=== PATIENT | female | born 1940 | race Caucasian/White ===

== ENCOUNTER 2017-01-20 00:41 | Emergency (ER) | payer MEDICARE, OTHER ==
[2017-01-20] MEDS ORDERED: HYDROCHLOROTHIAZIDE 12.5 MG CAPSULE PO ONE (01:56)
[2017-01-20] MEDS ORDERED: LORAZEPAM INJ 2 MG/1 ML VIAL IV ONE (01:58)
--- NOTE | 2017-01-20 02:02 | ER Document Report ---
ED General - General Chief Complaint: Blood Pressure Problem Stated Complaint: HEADACHE AND BLOOD PRESSURE PROBLEMS Time Seen by Provider: 01/20/17 01:01 Notes: Patient is a 76-year-old female presents with complaints of high blood pressure. She says 3 weeks ago her neurologist took her off her chlorthalidone. Her blood pressure started to go up. She went to her primary care doctor who started on clonidine. Clonidine made her very sleepy and therefore she was weaned off the clonidine. She saw her primary care doctor today who started her back chlorthalidone and also prescribed a new medication that she is to chicken picker tomorrow. She says when she laid down she felt like her heart was beating hard. She did not have chest pain associated with this. She does have mild headache. She has no weakness or numbness. No slurring of her speech. She said she felt very anxious. She called her doctor told her to come to the ER. Patient's concerned that her blood pressure continues to run high. She has no other complaints at this time. Patient does have a mild right -sided headache she says it is intermittent. It is gradual in onset. It is not sudden onset. TRAVEL OUTSIDE OF THE [place] IN LAST 30 DAYS: No - Related Data Allergies/Adverse Reactions: clarithromycin [Clarithromycin] Allergy (Verified 07/24/16 14:40) codeine [Codeine] Allergy (Verified 07/24/16 14:40) diltiazem HCl [From Tiazac] Allergy (Verified 07/24/16 14:40) oxycodone [Oxycodone] Allergy (Verified 07/24/16 14:40) Past Medical History - Social History Smoking Status: Never Smoker Frequency of alcohol use: None Drug Abuse: None Family History: Reviewed & Not Pertinent Patient has suicidal ideation: No Patient has homicidal ideation: No - Past Medical History Cardiac Medical History: Reports: Hx Hypertension Denies: Hx Coronary Artery Disease, Hx Heart Attack Pulmonary Medical History: Denies: Hx Asthma, Hx Bronchitis, Hx COPD, Hx Pneumonia Neurological Medical History: Denies: Hx Cerebrovascular Accident, Hx Seizures Renal/ Medical History: Denies: Hx Peritoneal Dialysis Malignancy Medical History: Reports: Hx Breast Cancer Musculoskeltal Medical History: Reports Hx Arthritis - OA Past Surgical History: Reports: Hx Hysterectomy, Hx Mastectomy, Other - bilateral cataracts - Immunizations Hx Diphtheria, Pertussis, Tetanus Vaccination: Yes Hx Pneumococcal Vaccination: 05/18/14 Review of Systems - Review of Systems Notes: My Normal Review Basic REVIEW OF SYSTEMS: CONSTITUTIONAL : Denies fever, chills, or sweats. Denies recent illness. EENT: Denies eye, ear, throat, or mouth pain or symptoms. Denies nasal or sinus congestion. CARDIOVASCULAR: Denies chest pain. RESPIRATORY: Denies cough, cold, or chest congestion. Denies shortness of breath, difficulty breathing, or wheezing. GASTROINTESTINAL: Denies abdominal pain. Denies nausea, vomiting, or diarrhea. Denies constipation. Last BM: GENITOURINARY: Denies difficulty urinating, painful urination, burning, frequency, or blood in urine. MUSCULOSKELETAL: Denies neck or back pain or joint pain or swelling. SKIN: Denies rash or skin lesions. HEMATOLOGIC : Denies easy bruising or bleeding. LYMPHATIC: Denies swollen, enlarged glands. NEUROLOGICAL: Denies altered mental status or loss of consciousness. Has a mild headache. Denies weakness or paralysis or loss of use of either side. Denies problems with gait or speech. Denies sensory or motor loss. ALL OTHER SYSTEMS REVIEWED AND NEGATIVE. Physical Exam - Vital signs Vitals: Temp Pulse Resp BP Pulse Ox 98.5 F 73 14 210/87 H 96 01/20/17 00:50 01/20/17 00:50 01/20/17 00:50 01/20/17 00:50 01/20/17 00:50 - Notes Notes: General Appearance: Well nourished, alert, cooperative, no acute distress, no obvious discomfort. Well appearing. Vitals: reviewed, See vital signs table. Head: no swelling or tenderness to the head Eyes: PERRL, EOMI, Conjuctiva clear Mouth: No decreasd moisture Lungs: No wheezing, No rales, No rhonci, No accessory muscle use, good air exchange bilaterally. Heart: Normal rate, Regular rythm, No murmur, no rub Abdomen: Normal BS, soft, No rigidity, No abdominal tenderness, No guarding, no rebound, no abdominal masses, no organomegaly Extremities: strength 5/5 in all extremities, good pulses in all extremities, no swelling or tenderness in the extremities, no edema. Skin: warm, dry, appropriate color, no rash Neuro: speech clear, oriented x 3, normal affect, responds appropriately to questions. Cranial nerves II through XII are intact. Distal sensation intact. Patient moves all extremities without difficulty. Normal gait. Course - Re-evaluation Re-evalutation: 01/20/17 02:31 EKG was performed but leads V4 and V5 are complete artifact and therefore I will have them repeat the EKG. - Vital Signs Vital signs: Temp Pulse Resp BP Pulse Ox 98.5 F 73 20 210/87 H 96 01/20/17 01:44 01/20/17 01:44 01/20/17 01:44 01/20/17 01:44 01/20/17 01:44 - EKG Interpretation by Me Additional EKG results interpreted by me: 01/20/17 03:12 EKG shows normal sinus rhythm with a rate of [address] segment elevation or depression. No ischemic T-wave inversions. NV interval, QRS duration, QTc intervals are within normal range. No old EKG available for comparison. - Transfer of Care Notes: 01/20/17 03:49 Patient's blood pressure is much improved. She feels much improved after the Ativan. I suspect that she does have some blood pressure issues which will hopefully be better controlled with her new medication that her doctors prescribed for her. I suspect a lot of maria elena's blood pressure issues is related to stress and anxiety as she is very stressed over having high blood pressure. Ativan combo down significantly and now her blood pressure is much improved. Patient will be discharged home and is encouraged to start taking the medication prescribed by her doctor. Patient encouraged to return here if she has headache, chest pain, or feels unwell. Patient agrees with plan and will be discharged home. Dictation of this chart was performed using voice recognition software; therefore, there may be some unintended grammatical errors. Discharge - Discharge Clinical Impression: Anxiety Hypertension Qualifiers: Hypertension type: essential hypertension Qualified Code(s): I10 - Essential ( primary) hypertension Condition: Good Disposition: HOME, SELF-CARE Additional Instructions: HIGH BLOOD PRESSURE, NOT TREAT: When your blood pressure was taken today it was elevated. Today's reading was . We do not think you need to have your blood pressure treated today. Sometimes, stress or illness causes a temporary elevation of your blood pressure. We suggest that you get your blood pressure measured again during the next few days to see if this elevated blood pressure is more than a temporary abnormality. If your blood pressure is greater than 150/90 on each occasion, you must have treatment. Some simple things you can do to help are: If you have blood pressure medicine but aren't using it regularly, start taking it again. Get some aerobic exercise for at least 20 minutes on a daily basis. (See your doctor before beginning a new exercise program.) Eat a low-fat diet. Lose excess weight. Avoid salty foods and avoid adding salt to any of the foods you eat. Avoid diet pills, decongestants, "energizing" herbs, and other medicines that elevate blood pressure. If left untreated, hypertension greatly enhances your risk for developing heart disease and strokes. Please don't ignore this problem. HIGH BLOOD PRESSURE REQUIRING TREATMENT: Your blood pressure is high. This is called "hypertension." Today's reading was _199/98____ (normal is less than 140/90). Your history and exam suggest that this is not a temporary problem. You need treatment of your blood pressure. If left untreated, high blood pressure greatly increases your risk of heart attack and stroke. Please don't ignore this problem. If you have blood pressure medicine but aren't using it regularly, start taking it again. Some simple things you can do to help are: Get some aerobic exercise for at least 20 minutes on a daily basis. (See your doctor before beginning any new exercise program.) Eat a low-fat diet. Lose excess weight. Avoid salty foods and avoid adding salt to any of the foods you eat. Avoid diet pills, decongestants, "energizing" herbs, and other medicines that elevate blood pressure. There are many different medicines that treat blood pressure. If your medication causes unpleasant side effects, call your doctor. There are others you can try. Treating hypertension is a life-long investment in your health. FOLLOW-UP CARE: If you have been referred to a physician for follow-up care, call the physician s office for an appointment as you were instructed or within the next two days. If you experience worsening or a significant change in your symptoms, notify the physician immediately or return to the Emergency Department at any time for re-evaluation. Please start taking the new medication prescribed by you doctor. [facility] you develop chest pain, severe headaches, or feel unwell. Referrals: ARSH BENSON, ALFREDO [Primary Care Provider] - 01/22/17
[2017-01-20] MEDS ORDERED: ACETAMINOPHEN 325 MG TABLET PO ONE (03:52)
--- NOTE | 2017-01-20 04:14 | RADIOLOGY REPORT (SQ) ---
EXAM DESCRIPTION: CT HEAD WITHOUT COMPLETED DATE/TIME: 01/20/2017 4:03 am REASON FOR STUDY: headache COMPARISON: None. TECHNIQUE: Axial images acquired through the brain without intravenous contrast. Images reviewed wi th bone, brain and subdural windows. Images stored on PACS. All CT scanners at this facility use dose modulation, iterative reconstruction, and/or weight based d osing when appropriate to reduce radiation dose to as low as reasonably achievable (ALARA). [facility]: Dose Right [facility]: CareDose [facility]: Dose Right [facility]: Teradose 4D [facility]: [email or web address] RADIATION DOSE: 1163 LIMITATIONS: None. FINDINGS: VENTRICLES: Normal size and contour. CEREBRUM: No masses. No hemorrhage. No midline shift. Normal mays/white matter differentiation. N o evidence for acute infarction. Minimal cerebral volume loss. CEREBELLUM: No masses. No hemorrhage. No alteration of density. No evidence for acute infarction. EXTRAAXIAL SPACES: No fluid collections. No masses. Atherosclerosis. ORBITS AND GLOBE: No intra- or extraconal masses. Normal contour of globe without masses. CALVARIUM: No fracture. PARANASAL SINUSES: No fluid or mucosal thickening. SOFT TISSUES: No mass or hematoma. OTHER: No other significant finding. IMPRESSION: No acute findings. TECHNICAL DOCUMENTATION: JOB ID: [id number] Quality ID # [id number]: Final reports with documentation of one or more dose reduction techniques (e.g., Au tomated exposure control, adjustment of the mA and/or kV according to patient size, use of iterative reconstruction technique) 2010 [employer]- All Rights Reserved
[2017-01-20 05:14] VITALS: BP 163/99
--- NOTE | 2017-01-22 09:53 | EKG REPORT ---
SEVERITY:- NORMAL ECG - SINUS RHYTHM : Confirmed by: Porsha Adams 22-Jan-2017 09:52:16
== END 2017-01-20 05:12 | disposition home or self-care (01) ==
LOC: ER 00:41
DX: I10 Essential (primary) hypertension (principal); F41.9 Anxiety disorder, unspecified; R51 Headache; Z88.1 Allergy status to other antibiotic agents; Z88.5 Allergy status to narcotic agent; Z88.8 Allergy status to other drugs, medicaments and biological substances; Z85.3 Personal history of malignant neoplasm of breast
CPT/HCPCS: 93005; 99284; 96374; 70450; 93010; A9270 ×2; J2060

== ENCOUNTER → 2017-03-28 | Outpatient (CLI) | payer MEDICARE, OTHER ==
--- NOTE | 2017-03-30 02:11 | RADIOLOGY REPORT (SQ) ---
EXAM DESCRIPTION: CAROTID DOPPLER COMPLETED DATE/TIME: 03/28/2017 1:31 pm REASON FOR STUDY: BRUIT R09.89 OTH SYMPTOMS AND SIGNS INVOLVING THE CIRC AND RESP SY COMPARISON: Carotid Doppler 11/28/2012 CT brain 01/20/2017 TECHNIQUE: Grayscale ultrasound, Doppler velocity and spectra, and color Doppler images acquired of the extra-cranial carotid and vertebral arteries. Images stored on PACS. LIMITATIONS: None. FINDINGS: RIGHT CAROTID CCA Velocities: Within normal limits. ICA Velocities Peak systolic 0.88 m/s. End diastolic 0.18 m/s. Proximal ICA/CCA peak systolic ratio 2.5. Spectra normal. Minimal calcific plaque at the right carotid bifurcation without flow significant st enosis. LEFT CAROTID CCA Velocities: Within normal limits. ICA Velocities Peak systolic 0.84 m/s. End diastolic 0.29 m/s. Proximal ICA/CCA peak systolic ratio 1.6. Spectra normal. Minimal plaque at the left carotid bifurcation without flow significant stenosis. VERTEBRAL ARTERIES: Antegrade flow. Normal waveforms. SUBCLAVIAN ARTERIES: Not examined OTHER: No other significant finding. IMPRESSION: NO HEMODYNAMICALLY SIGNIFICANT STENOSIS. COMMENT: Quality ID #[id number]: Velocity criteria are extrapolated from the diameter data as defined by t he Society of Radiologists in Ultrasound Consensus Conference. Radiology 2003: 229; 340-346. TECHNICAL DOCUMENTATION: JOB ID: [id number]- All Rights Reserved
== END ==
LOC: SP 12:29
PROVIDERS: ATTEND Nurse Practitioner Primary Care
DX: R09.89 Other specified symptoms and signs involving the circulatory and respiratory systems (principal)
CPT/HCPCS: 93880

== ENCOUNTER → 2017-06-11 | Outpatient (CLI) | payer MEDICARE, OTHER ==
--- NOTE | 2017-06-11 11:25 | WOMENS IMAGING REPORT ---
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 TECHNIQUE: Dual-Energy X-ray Absorptiometry (DEXA) of the AP Spine and Hip. LIMITATIONS: None. FINDINGS: LUMBAR SPINE: The bone mineral density (BMD) measured from L1-L4 in the AP projection correlates with a T-score of -1.3, which is osteopenia as defined by the World Health Organization. HIP: The bone mineral density (BMD) measured in the left hip correlates with a T-score of -3.4 in the femo ral neck, which is osteoporosis as defined by the World Health Organization. IMPRESSION: 1. LUMBAR SPINE: OSTEOPENIA. 2. HIP: OSTEOPOROSIS. COMMENT: The World Health Organization defines low BMD as follows: T-score: Normal: Greater than -1.0 Osteopenia: Between -1.0 and -2.5 Osteoporosis: Less than -2.5 without fractures Established osteoporosis: Less than -2.5 with fractures In general, you may wish to consider: Diagnosis Treatment Follow-up DEXA Normal BMD Prevention 2-3 years Osteopenia Prevention/Therapy 1-2 years Osteoporosis Therapy Yearly TECHNICAL DOCUMENTATION: JOB ID: [id number] [employer]- All Rights Reserved
== END ==
LOC: WI 09:54
PROVIDERS: ATTEND Nurse Practitioner Primary Care
DX: M81.0 Age-related osteoporosis without current pathological fracture (principal)
CPT/HCPCS: 77080

== ENCOUNTER → 2017-10-25 | Outpatient (CLI) | payer MEDICARE, OTHER ==
--- NOTE | 2017-10-25 12:54 | RADIOLOGY REPORT (SQ) ---
EXAM DESCRIPTION: CAROTID DOPPLER COMPLETED DATE/TIME: 10/25/2017 10:51 am REASON FOR STUDY: BRUIT R09.89 OTH SYMPTOMS AND SIGNS INVOLVING THE CIRC AND RESP SY COMPARISON: 03/28/2017 TECHNIQUE: Grayscale ultrasound, Doppler velocity and spectra, and color Doppler images acquired of the extra-cranial carotid and vertebral arteries. Images stored on PACS. LIMITATIONS: None. FINDINGS: RIGHT CAROTID CCA Velocities: Within normal limits. ICA Velocities Peak systolic 93cm/s. End diastolic 24 m/s. Proximal ICA/CCAcpeak systolic ratio 1.2. Waveforms normal. No significant plaque. LEFT CAROTID CCA Velocities: Within normal limits. ICA Velocities Peak systolic 127cm/s. End diastolic 43cm/s. Proximal ICA/CCA peak systolic ratio 2.1. The left internal carotid is tortuous. Normal waveforms. No significant plaque. VERTEBRAL ARTERIES: Antegrade flow. Normal waveforms. SUBCLAVIAN ARTERIES: No finding. OTHER: No other significant finding. IMPRESSION: NO HEMODYNAMICALLY SIGNIFICANT STENOSIS. COMMENT: Quality ID #195: Velocity criteria are extrapolated from the diameter data as defined by t he Society of Radiologists in Ultrasound Consensus Conference. Radiology 2003: 229; 340-346. TECHNICAL DOCUMENTATION: JOB ID: [id number] [employer]- All Rights Reserved Reading location - IP/workstation name: [email or web address]
== END ==
LOC: SP 09:53
PROVIDERS: ATTEND Nurse Practitioner Primary Care
DX: R09.89 Other specified symptoms and signs involving the circulatory and respiratory systems (principal)
CPT/HCPCS: 93880

== ENCOUNTER → 2018-02-22 | Outpatient (CLI) | payer MEDICARE, OTHER ==
[2018-02-22 15:09] LABS: ABSOLUTE BASOPHILS # (AUTO) 0.1 10^3/uL (0.0-0.2); ABSOLUTE EOSINOPHILS # (AUTO) 0.3 10^3/uL (0.0-0.6); ABSOLUTE LYMPHOCYTES (AUTO) 1.7 10^3/uL (0.5-4.7); ABSOLUTE MONOCYTES (AUTO) 1.2 10^3/uL (0.1-1.4); ABSOLUTE NEUT (AUTO) 10.4 10^3/uL (1.7-8.2); BASOPHILS % (AUTO) 0.4 % (0-2); HEMATOCRIT 37.9 % (36.0-47.0); HEMOGLOBIN 12.7 g/dL (12.0-15.5); LYMPHOCYTES % (AUTO) 12.3 % (13-45); MEAN CORPUSCULAR HEMOGLOBIN 33.6 pg (27.0-33.4); MEAN CORPUSCULAR HGB CONC 33.6 g/dL (32.0-36.0); MEAN CORPUSCULAR VOLUME 100 fl (80-97); MONOCYTES % (AUTO) 8.6 % (3-13); PLATELET COUNT 153 10^3/uL (150-450); RED BLOOD COUNT 3.78 10^6/uL (3.72-5.28); RED CELL DISTRIBUTION WIDTH 13.3 % (11.5-14.0); SEGMENTED NEUTROPHILS % (AUTO) 76.7 % (42-78); TOTAL CELLS COUNTED % (AUTO) 100 %; WHITE BLOOD COUNT 13.6 10^3/uL (4.0-10.5)
[2018-02-22 15:29] LABS: ALANINE AMINOTRANSFERASE 39 U/L (9-52); ALBUMIN 3.1 g/dL (3.5-5.0); ALKALINE PHOSPHATASE 69 U/L (38-126); ANION GAP 13 (5-19); ASPARTATE AMINO TRANSFERASE 44 U/L (14-36); BILIRUBIN,DIRECT 0.4 mg/dL (0.0-0.4); BILIRUBIN,TOTAL 0.5 mg/dL (0.2-1.3); BLOOD UREA NITROGEN 33 mg/dL (7-20); CALCIUM 9.9 mg/dL (8.4-10.2); CARBON DIOXIDE 30 mmol/L (22-30); CHLORIDE 103 mmol/L (98-107); GLUCOSE 112 mg/dL (75-110); POTASSIUM 4.6 mmol/L (3.6-5.0); SODIUM 146.4 mmol/L (137-145); TOTAL PROTEIN 5.5 g/dL (6.3-8.2)
== END ==
LOC: OD 14:30
PROVIDERS: ATTEND Nurse Practitioner Primary Care
DX: J06.9 Acute upper respiratory infection, unspecified (principal); N18.4 Chronic kidney disease, stage 4 (severe); D69.6 Thrombocytopenia, unspecified; D72.829 Elevated white blood cell count, unspecified
CPT/HCPCS: 36415; 80053; 85025

== ENCOUNTER 2019-04-25 13:31 | Emergency (ER) | payer MEDICARE, OTHER ==
--- NOTE | 2019-04-25 14:15 | ER Document Report ---
ED Medical Screen (RME) - General Chief Complaint: Blood Pressure Problem Stated Complaint: BLOOD PRESSURE PROBLEMS Time Seen by Provider: 04/25/19 14:11 Primary Care Provider: ARSH BENSON NP [Primary Care Provider] - Follow up as needed Mode of Arrival: Ambulatory Information source: Patient Notes: 78-year-old female presented to ED for elevated blood pressure. She went to her doctor today and they did multiple blood pressures and it was elevated. She states she is on 3 blood pressure medicines at this time. She states she is feeling very weak and jittery. She does in her ears and feel very dry. States she has had excessive burping for the last couple days. She states she is never had a history of stroke or headaches she does have elevated blood pressure. She does not have a headache at this time. Patient is alert oriented respirations regular and unlabored speaking in full sentences. I have greeted and performed a rapid initial assessment of this patient. A comprehensive ED assessment and evaluation of the patient, analysis of test results and completion of medical decision making process will be conducted by an additional ED providers. TRAVEL OUTSIDE OF THE [place] IN LAST 30 DAYS: No - Related Data Allergies/Adverse Reactions: clarithromycin [Clarithromycin] Allergy (Verified 04/25/19 13:33) codeine [Codeine] Allergy (Verified 04/25/19 13:33) diltiazem HCl [From Tiazac] Allergy (Verified 04/25/19 13:33) oxycodone [Oxycodone] Allergy (Verified 04/25/19 13:33) Past Medical History - Past Medical History Cardiac Medical History: Reports: Hx Hypertension Denies: Hx Coronary Artery Disease, Hx Heart Attack Pulmonary Medical History: Denies: Hx Asthma, Hx Bronchitis, Hx COPD, Hx Pneumonia Neurological Medical History: Denies: Hx Cerebrovascular Accident, Hx Seizures Renal/ Medical History: Denies: Hx Peritoneal Dialysis Malignancy Medical History: Reports: Hx Breast Cancer Musculoskeltal Medical History: Reports Hx Arthritis - OA Past Surgical History: Reports: Hx Hysterectomy, Hx Mastectomy, Other - bilateral cataracts - Immunizations Hx Diphtheria, Pertussis, Tetanus Vaccination: Yes Physical Exam - Vital signs Vitals: Temp Pulse Resp BP Pulse Ox 99.7 F 66 18 162/82 H 97 04/25/19 13:56 04/25/19 13:56 04/25/19 13:56 04/25/19 13:56 04/25/19 13:56 Course - Vital Signs Vital signs: Temp Pulse Resp BP Pulse Ox 99.7 F 66 18 162/82 H 97 04/25/19 13:56 04/25/19 13:56 04/25/19 13:56 04/25/19 13:56 04/25/19 13:56 Doctor's Discharge - Discharge Referrals: ARSH BENSON NP [Primary Care Provider] - Follow up as needed
[2019-04-25 15:46] LABS: ABSOLUTE BASOPHILS # (AUTO) 0.1 10^3/uL (0.0-0.2); ABSOLUTE EOSINOPHILS # (AUTO) 0.2 10^3/uL (0.0-0.6); ABSOLUTE LYMPHOCYTES (AUTO) 1.4 10^3/uL (0.5-4.7); ABSOLUTE MONOCYTES (AUTO) 0.7 10^3/uL (0.1-1.4); ABSOLUTE NEUT (AUTO) 6.5 10^3/uL (1.7-8.2); BASOPHILS % (AUTO) 0.6 % (0-2); HEMATOCRIT 45.1 % (36.0-47.0); HEMOGLOBIN 14.9 g/dL (12.0-15.5); LYMPHOCYTES % (AUTO) 15.9 % (13-45); MEAN CORPUSCULAR VOLUME 103 fl (80-97); MONOCYTES % (AUTO) 7.8 % (3-13); PLATELET COUNT 115 10^3/uL (150-450); RED BLOOD COUNT 4.38 10^6/uL (3.72-5.28); RED CELL DISTRIBUTION WIDTH 14.1 % (11.5-14.0); SEGMENTED NEUTROPHILS % (AUTO) 73.7 % (42-78); TOTAL CELLS COUNTED % (AUTO) 100 %; WHITE BLOOD COUNT 8.9 10^3/uL (4.0-10.5)
[2019-04-25 16:11] LABS: ALBUMIN 3.8 g/dL (3.5-5.0); ALKALINE PHOSPHATASE 48 U/L (38-126); ANION GAP 6 (5-19); ASPARTATE AMINO TRANSFERASE 26 U/L (14-36); BILIRUBIN,DIRECT 0.1 mg/dL (0.0-0.4); BILIRUBIN,TOTAL 0.9 mg/dL (0.2-1.3); BLOOD UREA NITROGEN 19 mg/dL (7-20); CARBON DIOXIDE 30 mmol/L (22-30); CHLORIDE 105 mmol/L (98-107); GLUCOSE 108 mg/dL (75-110)
[2019-04-25 16:12] LABS: CREATINE KINASE 49 U/L (30-135); TOTAL PROTEIN 6.1 g/dL (6.3-8.2)
[2019-04-25 16:28] LABS: CREATINE KINASE MB 1.13 ng/mL (<4.55); TROPONIN I < 0.012 ng/mL
--- NOTE | 2019-04-25 18:05 | ER Document Report ---
ED Blood Pressure Problem - General Mode of Arrival: Ambulatory TRAVEL OUTSIDE OF THE [place] IN LAST 30 DAYS: No <AKHILHARDIK - Last Filed: 04/25/19 20:08> <MADALYN SCOTT - Last Filed: 04/25/19 21:08> - General Chief Complaint: Blood Pressure Problem Stated Complaint: BLOOD PRESSURE PROBLEMS Time Seen by Provider: 04/25/19 14:11 Primary Care Provider: ARSH BENSON NP [Primary Care Provider] - Follow up as needed Notes: Patient is a 78-year-old female with a history of hypertension, stage III kidney disease, osteoporosis who presents to the emergency department with a chief complaint of elevated blood pressure. Patient reports she was at her doctor's office this morning and was sent over for palpitations and elevated blood pressure. Patient reports she has had palpitations since Sunday. Patient reports she does get these palpitations when her blood pressure is elevated. Patient does report taking 3 blood pressure medications at home in which she has been taking as prescribed. Patient does have stage III kidney disease in which she does see Dr. Mchugh for. Patient reports that she feels jittery. Patient denies chest pain. Patient reports intermittent shortness of breath. Patient denies headache. (HARDIK LANDAVERDE) - Related Data Allergies/Adverse Reactions: clarithromycin [Clarithromycin] Allergy (Verified 04/25/19 13:33) codeine [Codeine] Allergy (Verified 04/25/19 13:33) diltiazem HCl [From Tiazac] Allergy (Verified 04/25/19 13:33) oxycodone [Oxycodone] Allergy (Verified 04/25/19 13:33) Past Medical History - General Information source: Patient - Social History Smoking Status: Unknown if Ever Smoked Family History: Reviewed & Not Pertinent Patient has suicidal ideation: No Patient has homicidal ideation: No - Past Medical History Cardiac Medical History: Reports: Hx Hypertension Denies: Hx Coronary Artery Disease, Hx Heart Attack Pulmonary Medical History: Denies: Hx Asthma, Hx Bronchitis, Hx COPD, Hx Pneumonia Neurological Medical History: Denies: Hx Cerebrovascular Accident, Hx Seizures Renal/ Medical History: Denies: Hx Peritoneal Dialysis Malignancy Medical History: Reports: Hx Breast Cancer Musculoskeletal Medical History: Reports Hx Arthritis - OA Past Surgical History: Reports: Hx Hysterectomy, Hx Mastectomy, Other - bilateral cataracts - Immunizations Hx Diphtheria, Pertussis, Tetanus Vaccination: Yes Hx Pneumococcal Vaccination: 05/18/14 <HARDIK LANDAVERDE - Last Filed: 04/25/19 20:08> Physical Exam - Vital signs Interpretation: Hypertensive <HARDIK LANDAVERDE - Last Filed: 04/25/19 20:08> - Vital signs Vitals: Temp Pulse Resp BP Pulse Ox 99.7 F 66 18 162/82 H 97 04/25/19 13:56 04/25/19 13:56 04/25/19 13:56 04/25/19 13:56 04/25/19 13:56 - Notes Notes: GENERAL: Well-appearing, well-nourished and in no acute distress. HEAD: Atraumatic, normocephalic. EYES: Pupils equal round and reactive to light, extraocular movements intact, sclera anicteric, conjunctiva are normal. ENT: Nares patent, oropharynx clear without exudates. Moist mucous membranes. NECK: Normal range of motion, supple without lymphadenopathy or JVD. LUNGS: Breath sounds clear to auscultation bilaterally and equal. No wheezes rales or rhonchi. HEART: Regular rate and irregular rhythm without murmurs, rubs or gallops. ABDOMEN: Soft, nontender, hyperactive bowel sounds. No guarding, no rebound. No masses appreciated. BACK: No cervical, thoracic, lumbar midline tenderness. No saddle anesthesia, normal distal neurovascular exam. GENITOURINARY: Deferred. EXTREMITIES: Normal range of motion, no pitting or edema. No clubbing or cyanosis. NEUROLOGICAL: Cranial nerves II through XII grossly intact. Normal speech, normal gait. PSYCH: Normal mood, normal affect. SKIN: Warm, Dry, normal turgor, no rashes or lesions noted. (HARDIK LANDAVERDE) Course - Laboratory Result Diagrams: 04/25/19 15:34 04/25/19 15:34 - Diagnostic Test Radiology reviewed: Reports reviewed <HARDIK LANDAVERDE - Last Filed: 04/25/19 20:08> - Laboratory Result Diagrams: 04/25/19 15:34 04/25/19 15:34 <MADALYN SCOTT - Last Filed: 04/25/19 21:08> - Re-evaluation Re-evalutation: 04/25/19 19:38 Patient's creatinine is elevated at 1.63. Patient does report she has stage IV kidney disease and does follow Dr. Mchugh as her materials scientist. She states that she is not currently on dialysis. Patient denies chest pain but does report chest palpitations. Patient is a sinus rhythm on the monitor with occasional PVCs. Patient blood pressure is elevated at 172/85. Patient is due for her nightly dose of Cozaar. I will see the patient and give her dose of blood pressure medication. Will obtain a second troponin. Patient and family in agreement with this plan. (HARDIK LANDAVERDE) 04/25/19 20:30 Bedside report was given to myself by Hardik Landaverde NP. Will await labs and will discuss labs with patient and family when they results. 04/25/19 21:05 Second troponin is negative and magnesium is 1.9. This was discussed with the family. Follow-up precautions were given. Verbal discharge instructions were given to the patient. They verbalized understanding. They are stable for d ischarge. (MADALYN SCOTT) - Vital Signs Vital signs: Temp Pulse Resp BP Pulse Ox 99.7 F 81 16 166/97 H 93 04/25/19 13:56 04/25/19 18:59 04/25/19 19:01 04/25/19 19:01 04/25/19 19:01 - Laboratory Laboratory results interpreted by me: 04/25/19 04/25/19 15:34 15:34 MCV 103 H MCH 34.0 H RDW 14.1 H Plt Count 115 L Creatinine 1.63 H Est GFR ( Amer) 37 L Est GFR (MDRD) Non-Af 30 L Calcium 11.0 H Total Protein 6.1 L 04/25/19 19:51 Laboratory 04/25/19 04/25/19 04/25/19 15:34 15:34 15:34 WBC 8.9 RBC 4.38 Hgb 14.9 Hct 45.1 MCV 103 H MCH 34.0 H MCHC 33.0 RDW 14.1 H Plt Count 115 L Lymph % (Auto) 15.9 [place] % (Auto) 7.8 Eos % (Auto) 2.0 Baso % (Auto) 0.6 Absolute Neuts (auto) 6.5 Absolute Lymphs (auto) 1.4 Absolute Monos (auto) 0.7 Absolute Eos (auto) 0.2 Absolute Basos (auto) 0.1 Seg Neutrophils % 73.7 Sodium 141.2 Potassium 4.0 Chloride 105 Carbon Dioxide 30 Anion Gap 6 BUN 19 Creatinine 1.63 H Est GFR ( Amer) 37 L Est GFR (MDRD) Non-Af 30 L Glucose 108 Calcium 11.0 H Total Bilirubin 0.9 Direct Bilirubin 0.1 Neonat Total Bilirubin Not Reportable Neonat Direct Bilirubin Not Reportable Neonat Indirect Bili Not Reportable AST 26 ALT 16 Alkaline Phosphatase 48 Creatine Kinase 49 CK-MB (CK-2) 1.13 Troponin I < 0.012 Total Protein 6.1 L Albumin 3.8 Lipase 169.0 (HARDIK LANDAVERDE) - Diagnostic Test Radiology results interpreted by me: 04/25/19 19:51 Chest X-Ray 04/25/19 17:54 IMPRESSION: NO ACUTE FINDINGS. (HARDIK LANDAVERDE) - EKG Interpretation by Me Additional EKG results interpreted by me: 04/25/19 19:51 Patient's EKG shows a sinus rhythm with a heart rate of 72. Patient's ND interval 152, QT 368 and QTc is 403. Patient does have a normal axis deviation. Patient does have multiple PVCs. There is no obvious ST segment changes in consecutive leads. (HARDIK LANDAVERDE) Discharge <HARDIK LANDAVERDE - Last Filed: 04/25/19 20:08> <TYLERMADALYN M - Last Filed: 04/25/19 21:08> - Discharge Clinical Impression: Palpitations Condition: Stable Disposition: HOME, SELF-CARE Additional Instructions: Today you are seen in the emergency department for palpitations. Your EKG did show frequent premature beats. Sometimes these beats can be caused by caffeine, nicotine, alcohol, cold pills or diet pills. Emotional stress and fatigue can also provoke these palpitations. We have given you your nightly dose of Cozaar while you are in the emergency department which did bring your blood pressure down. We have checked your heart and lab work which was unremarkable. Your creatinine which is your kidney function was slightly elevated but this is consistent which your previous levels and your stage IV kidney disease. Please follow-up with your power originator, please call them on Sunday to make follow-up appointment. Please continue your cardiac medications. Please return to the emergency department if you develop chest pain, palpitations that are severe, dizziness and lightheadedness, shortness of breath, chest pain or swelling of the ankles. Palpitations (Irregular/Rapid Heartrate) Irregular or rapid heartbeat is called "palpitation." To diagnose the cause of palpitation, we have to "catch it in the act" with an EKG. Sinus Tachycardia: This is a rapid (but NORMAL) rhythm that can be due to fever, pain, anxiety, lack of sleep, over-exertion, or drugs. Cold medications, caffeine, and diet pills are particularly likely to cause tachycardia. Usually, all that's required is rest, reassurance, and avoiding caffeine, alcohol, nicotine, and unnecessary medicines. Paroxysmal Atrial Tachycardia (PAT): This abnormally rapid heartbeat is caused by a "short circuit" in the electrical system of the heart. It is not dangerous, unless other heart disease is present. These attacks of PAT may occur occasionally for years. Medication is available for treatment. Paroxysmal Atrial Fibrillation or Atrial Flutter: This is irregular electrical activity in the upper heart chamber. These abnormal rhythms often occur with valve disease or in hearts damaged by hardening of the arteries. These rhythms usually require further testing, for example a cardiac echo. Premature Beats: Extra beats occur more commonly after caffeine, nicotine, alcohol, cold pills, diet pills. Emotional stress or fatigue also provoke them. Extra beats are only dangerous when heart disease is present. They usually need no treatment. If they're frequent, or if evidence of heart disease develops, medication can be given to suppress them. If we were unable to "catch" the palpitations on EKG, you should try to get an EKG immediately if the symptoms begin again. Contact the physician at once if you develop persistent lightheadedness, shortness of breath, chest pain, or swelling of the ankles. Referrals: ARSH BENSON NP [Primary Care Provider] - Follow up as needed
--- NOTE | 2019-04-25 18:52 | RADIOLOGY REPORT (SQ) ---
EXAM DESCRIPTION: CHEST 2 VIEWS COMPLETED DATE/TIME: 04/25/2019 6:40 pm REASON FOR STUDY: CHEST PALPITATIONS, COUGH COMPARISON: 08/08/2016 TECHNIQUE: Frontal and lateral radiographic views of the chest acquired. NUMBER OF VIEWS: Two view. LIMITATIONS: None. FINDINGS: LUNGS AND PLEURA: No pneumothorax. No consolidation or pleural effusion. MEDIASTINUM AND HILAR STRUCTURES: Stable. HEART AND VASCULAR STRUCTURES: Stable. BONES: No acute findings. OTHER: No other significant finding. HARDWARE: Prior right mastectomy. IMPRESSION: NO ACUTE FINDINGS. TECHNICAL DOCUMENTATION: JOB ID: [id number] [employer]- All Rights Reserved Reading location - IP/workstation name: [email or web address]
[2019-04-25] MEDS ORDERED: LOSARTAN POTASSIUM 50 MG TABLET PO ONE (19:39)
[2019-04-25 21:20] VITALS: BP 151/74
--- NOTE | 2019-04-25 23:09 | EKG REPORT ---
SEVERITY:- ABNORMAL ECG - SINUS RHYTHM VENTRICULAR TRIGEMINY CONSIDER ANTEROSEPTAL INFARCT : Confirmed by: Melissa uPlido MD 25-Apr-2019 23:09:14
== END 2019-04-25 21:28 | disposition home or self-care (01) ==
LOC: ER 13:31
DX: R00.2 Palpitations (principal); I49.3 Ventricular premature depolarization; I12.9 Hypertensive chronic kidney disease with stage 1 through stage 4 chronic kidney disease, or unspecified chronic kidney disease; N18.9 Chronic kidney disease, unspecified; Z79.899 Other long term (current) drug therapy; Z85.3 Personal history of malignant neoplasm of breast; Z88.1 Allergy status to other antibiotic agents; Z88.5 Allergy status to narcotic agent; Z88.8 Allergy status to other drugs, medicaments and biological substances
CPT/HCPCS: 93005; 99285; 36415; 82553; 82550; 83690; 83735; 85025; 80053; 84484; 71046; 93010; A9270

== ENCOUNTER → 2019-05-08 | Outpatient (CLI) | payer MEDICARE, OTHER ==
[2019-05-08 16:42] LABS: HEMATOCRIT 44.3 % (36.0-47.0); HEMOGLOBIN 14.7 g/dL (12.0-15.5); MEAN CORPUSCULAR HEMOGLOBIN 33.8 pg (27.0-33.4); MEAN CORPUSCULAR HGB CONC 33.1 g/dL (32.0-36.0); MEAN CORPUSCULAR VOLUME 102 fl (80-97); PLATELET COUNT 147 10^3/uL (150-450); RED BLOOD COUNT 4.33 10^6/uL (3.72-5.28); RED CELL DISTRIBUTION WIDTH 13.7 % (11.5-14.0); WHITE BLOOD COUNT 12.1 10^3/uL (4.0-10.5)
== END ==
LOC: OD 15:31
PROVIDERS: ATTEND Nurse Practitioner Primary Care
DX: D69.6 Thrombocytopenia, unspecified (principal); D72.821 Monocytosis (symptomatic); R53.82 Chronic fatigue, unspecified; D72.829 Elevated white blood cell count, unspecified; R71.8 Other abnormality of red blood cells
CPT/HCPCS: 36415; 85027; 88184; 88185

== ENCOUNTER → 2019-06-06 | Outpatient (CLI) | payer MEDICARE, OTHER ==
--- NOTE | 2019-06-06 09:06 | RADIOLOGY REPORT (SQ) ---
EXAM DESCRIPTION: U/S ABDOMEN LIMITED W/O DOP COMPLETED DATE/TIME: 06/06/2019 8:02 am REASON FOR STUDY: D69.6 THROMBOCYTOPENIA, UNSPECIFIED D69.6 THROMBOCYTOPENIA, UNSPECIFIED COMPARISON: None. TECHNIQUE: Dynamic and static grayscale images acquired of the abdomen and recorded on PACS. Additio nal selected color Doppler and spectral images recorded. LIMITATIONS: None. FINDINGS: PANCREAS: The visualized portions of the pancreas appear normal. LIVER: Normal contour and echotexture. LIVER VASCULATURE: Normal directional flow of the main portal vein and hepatic veins. GALLBLADDER: The gallbladder wall measures 1.7 mm in thickness. There is no cholelithiasis, sludge, or pericholecystic fluid. ULTRASOUND-DETECTED KOEHLER'S SIGN: Negative. INTRAHEPATIC DUCTS AND COMMON DUCT: The common bile duct measures 5 mm in diameter. There is no dila tation of the intrahepatic biliary ducts. INFERIOR VENA CAVA: Normal flow. AORTA: No aneurysm. RIGHT KIDNEY: The kidney measures 7.4 cm in length. There is no hydronephrosis. PERITONEAL AND RIGHT PLEURAL SPACE: No ascites or effusions. OTHER: No other findings. IMPRESSION: No sonographic abnormality of the right upper quadrant. TECHNICAL DOCUMENTATION: JOB ID: [id number] [employer]- All Rights Reserved Reading location - IP/workstation name: [email or web address]
== END ==
LOC: RAD 07:35
PROVIDERS: ATTEND Internal Medicine Gastroenterology
DX: D69.6 Thrombocytopenia, unspecified (principal)
CPT/HCPCS: 76705

== ENCOUNTER → 2020-05-06 | Outpatient (CLI) | payer MEDICARE, OTHER | LOC: OD 10:23 | PROVIDERS: ATTEND Nurse Practitioner Primary Care | DX: E83.52 Hypercalcemia (principal); N18.9 Chronic kidney disease, unspecified | CPT/HCPCS: 36415; 82310; 83970 ==

== ENCOUNTER → 2020-06-15 | Outpatient (CLI) | payer MEDICARE, OTHER ==
[2020-06-15 16:10] LABS: FREE T3 3.66 pg/mL (2.77-5.27); FREE T4 (FREE THYROXINE) 1.07 ng/dL (0.78-2.19)
[2020-06-15 16:24] LABS: THYROID STIMULATING HORMONE 2.14 uIU/mL (0.47-4.68)
== END ==
LOC: OD 14:58
PROVIDERS: ATTEND Surgery
DX: E04.1 Nontoxic single thyroid nodule (principal)
CPT/HCPCS: 36415; 82310; 83970; 84439; 84443; 84481

== ENCOUNTER → 2020-06-22 | Outpatient (CLI) | payer MEDICARE, OTHER ==
--- NOTE | 2020-06-22 14:23 | RADIOLOGY REPORT (SQ) ---
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 RADIONUCLIDE AND DOSE: 21.6 millicuries Tc-99m Sestamibi. The route of agent administration: Intravenous ADDITIONAL DRUGS AND DOSES: None. TECHNIQUE: Early and delayed images of the neck acquired following radionuclide administration. LIMITATIONS: None. FINDINGS: Thyroid: Normal size. Homogeneous activity. Normal washout. No focal lesions. Parathyroid: No retained activity in the thyroid or elsewhere in the neck to indicate a parathyroid a denoma. Other: No other significant findings. IMPRESSION: NORMAL STUDY. NO EVIDENCE OF PARATHYROID ADENOMA. TECHNICAL DOCUMENTATION: JOB ID: [id number] [employer]- All Rights Reserved Reading location - IP/workstation name: [email or web address]
== END ==
LOC: RAD 09:45
PROVIDERS: ATTEND Surgery
DX: E04.2 Nontoxic multinodular goiter (principal)
CPT/HCPCS: 78070; A9500; Q9969

== ENCOUNTER → 2020-09-10 | Outpatient (CLI) | payer MEDICARE, OTHER ==
[2020-09-10 10:00] LABS: HEMATOCRIT 38.7 % (36.0-47.0); HEMOGLOBIN 12.8 g/dL (12.0-15.5); MEAN CORPUSCULAR HEMOGLOBIN 33.8 pg (27.0-33.4); MEAN CORPUSCULAR HGB CONC 33.2 g/dL (32.0-36.0); MEAN CORPUSCULAR VOLUME 102 fl (80-97); PLATELET COUNT 115 10^3/uL (150-450); WHITE BLOOD COUNT 7.1 10^3/uL (4.0-10.5)
[2020-09-10 10:29] LABS: ALBUMIN 3.6 g/dL (3.5-5.0); ALKALINE PHOSPHATASE 147 U/L (38-126); ANION GAP 7 (5-19); ASPARTATE AMINO TRANSFERASE 27 U/L (14-36); BILIRUBIN,DIRECT 0.2 mg/dL (0.0-0.4); BILIRUBIN,TOTAL 0.7 mg/dL (0.2-1.3); BLOOD UREA NITROGEN 25 mg/dL (7-20); CALCIUM 11.1 mg/dL (8.4-10.2); CARBON DIOXIDE 30 mmol/L (22-30); CHLORIDE 104 mmol/L (98-107); GLUCOSE 95 mg/dL (75-110); POTASSIUM 3.9 mmol/L (3.6-5.0); TOTAL PROTEIN 5.6 g/dL (6.3-8.2)
== END ==
LOC: OD 09:17
PROVIDERS: ATTEND Internal Medicine Nephrology
DX: N18.4 Chronic kidney disease, stage 4 (severe) (principal); D63.1 Anemia in chronic kidney disease; F41.1 Generalized anxiety disorder
CPT/HCPCS: 36415; 80053; 82306; 82728; 83540; 83550; 83883; 83970; 84165; 84443; 85027